=== PATIENT | female | born 1960 | race Caucasian/White ===

== ENCOUNTER 2023-09-08 20:52 | Inpatient (IN) | payer OTHER, MEDICARE ==
[2023-09-08] MEDS ORDERED: HYDROmorphone 0.5 MG/0.5 ML SYRINGE ONE ×2 (21:19→22:17)
[2023-09-08] MEDS ORDERED: Ondansetron PF 4 MG/2 ML Vial IVP PRN (22:42)
[2023-09-08] MEDS ORDERED: hydrALAZINE 20 MG/ML VIAL SLOW IVP PRN (22:42)
[2023-09-08] MEDS ORDERED: Ipratropium/Albuterol 3 ML NEB NEB PRN (22:42)
[2023-09-09] MEDS: Morphine 2 MG/ML VIAL SLOW IVP PRN ×5 (00:45→15:00)
[2023-09-09] MEDS: Sodium Chloride 0.9% 1,000 ML IV SCH ×4 (00:54→22:37)
[2023-09-09 01:31] VITALS: BMI 27.3
[2023-09-09] MEDS ORDERED: Cyclobenzaprine 10 MG TAB PO PRN (01:47)
[2023-09-09 05:21] LABS: #Monocytes 0.4 thou/uL (0.11-0.59); #Neutrophils 5.9 thou/uL (1.40-6.50); %Basophils 0.4 % (0.0-1.0); %Eosinophils 0.4 % (0.0-10.0); %Lymphocytes 11.3 % (21.0-51.0); %Monocytes 6.1 % (0.0-10.0); %Neutrophils 81.4 % (42.0-75.0); Hematocrit 35.3 % (36.0-47.0); Mean Corpuscular HGB CONC 31.2 g/dL (32.0-36.0); Mean Corpuscular Hemoglobin 28.7 pg (27.0-31.0); Mean Corpuscular Volume 92.2 fl (78.0-98.0); Mean Platelet Volume 9.8 fL (7.4-10.4); Platelet Count 335 10x3/uL (130-400); RBC Distribution Width 14.4 % (11.5-14.5); Red Blood Cell (RBC) Count 3.83 mill/uL (4.20-5.40); White Blood Cell (WBC) Count 7.2 10x3/uL (4.8-10.8)
[2023-09-09 05:35] LABS: PTT 27.7 sec (22.9-36.1); Prothrombin Time 13.3 sec (12.0-14.7)
[2023-09-09 05:48] LABS: Anion Gap 13 mmol/L (10-20); BUN (Urea Nitrogen) 9 mg/dL (9.8-20.1); Calc. Creatinine Clearance 104 mL/min (70-130); Calcium 8.9 mg/dL (7.8-10.44); Carbon Dioxide 20 mmol/L (23-31); Chloride 103 mmol/L (98-107); Estimated GFR 99; Glucose 125 mg/dL (80-115); Potassium 4.1 mmol/L (3.5-5.1); Sodium 132 mmol/L (136-145)
[2023-09-09] MEDS ORDERED: Ondansetron ODT 4 MG TAB PO PRN (06:41)
[2023-09-09] MEDS: Naloxegol 12.5 MG TAB PO SCH (06:43)
[2023-09-09] MEDS ORDERED: Senokot S 8.6-50 MG TAB PO SCH (09:00)
[2023-09-09] MEDS: Polyethylene Glycol 3350 17 GM Packet PO SCH (09:12)
[2023-09-09] MEDS: Famotidine/PF 20 mg/2ml Vial SLOW IVP SCH ×2 (09:12→20:00)
[2023-09-09] MEDS: Gabapentin 300 MG CAP PO SCH ×3 (09:13→20:00)
[2023-09-09] MEDS: HYDROmorphone 2 MG TAB PO SCH ×2 (10:11→18:22)
[2023-09-09] MEDS: Cyclobenzaprine 10 MG TAB PO PRN (10:11)
[2023-09-10] MEDS: HYDROmorphone 2 MG TAB PO SCH ×2 (02:22→10:19)
[2023-09-10] MEDS: Cyclobenzaprine 10 MG TAB PO PRN (05:35)
[2023-09-10] MEDS: Naloxegol 12.5 MG TAB PO SCH (05:35)
[2023-09-10 07:38] VITALS: BP 154/83; TEMP 98.8
[2023-09-10] MEDS: Morphine 2 MG/ML VIAL SLOW IVP PRN ×2 (09:14→12:20)
[2023-09-10] MEDS: Famotidine/PF 20 mg/2ml Vial SLOW IVP SCH (09:16)
[2023-09-10] MEDS: Polyethylene Glycol 3350 17 GM Packet PO SCH ×2 (09:16→09:30)
[2023-09-10] MEDS: Gabapentin 300 MG CAP PO SCH (09:16)
[2023-09-10] MEDS: Sodium Chloride 0.9% 1,000 ML IV SCH (09:17)
== END 2023-09-10 12:30 | disposition home or self-care (01) | DRG 563 ==
LOC: ERS 20:52 → SJJU 22:46
PROVIDERS: ADMIT Student in an Organized Health Care Education/Training Program; ATTEND Student in an Organized Health Care Education/Training Program
DX: S82.031A Displaced transverse fracture of right patella, initial encounter for closed fracture (principal); K50.90 Crohn's disease, unspecified, without complications; G43.909 Migraine, unspecified, not intractable, without status migrainosus; G89.29 Other chronic pain; W19.XXXA Unspecified fall, initial encounter; E66.9 Obesity, unspecified; Z90.49 Acquired absence of other specified parts of digestive tract; Z98.890 Other specified postprocedural states; Z90.710 Acquired absence of both cervix and uterus; Z88.8 Allergy status to other drugs, medicaments and biological substances; Y92.89 Other specified places as the place of occurrence of the external cause; Z68.27 Body mass index [BMI] 27.0-27.9, adult
CPT/HCPCS: 36415; 80048; 85025; 85610; 85730; 96374; 96376; J1170; J2272; J7050; S0028